=== PATIENT | male | born 1990 | race Two or more races ===

== ENCOUNTER 2023-08-18 12:00 | Emergency (ER) | payer SELFPAY ==
[~2023-08-18] VITALS: Ht 172.7 cm; Wt 70.5 kg
[2023-08-18 12:05] VITALS: TEMP 97.7
[2023-08-18] MEDS: PERTUSS(ACELL),DIPH,TET/PF 0.5 ML SYRINGE [ADULT] IM. ONE (12:38)
[2023-08-18 12:46] VITALS: BP 120/70; PULSE 80; RESP 16
[2023-08-18] MEDS ORDERED: SULF-261 PO (13:19)
[2023-08-18] MEDS ORDERED: CEPH-558 PO (13:19)
== END 2023-08-18 12:54 | disposition home or self-care (01) ==
LOC: EMS 12:00
DX: L03.115 Cellulitis of right lower limb (principal); K46.9 Unspecified abdominal hernia without obstruction or gangrene; Z90.49 Acquired absence of other specified parts of digestive tract
CPT/HCPCS: 29505; 90471; 90715; 99283

== ENCOUNTER 2024-02-28 11:43 | Emergency (ER) | payer OTHER ==
[~2024-02-28] VITALS: Ht 172.7 cm; Wt 65.0 kg
[~2024-02-28 11:43] MED LIST: CEPH-558 PO; SULF-261 PO
[2024-02-28 11:48] VITALS: TEMP 98.6
[2024-02-28 13:55] LABS: COVID AG,FIA SOURCE NASAL SWAB
[2024-02-28 14:07] LABS: ALCOHOL, URINE DRUG SCREEN NEGATIVE (NEGATIVE); AMPHET/METH SCREEN,URINE NEGATIVE (NEGATIVE); BARBITURATE SCREEN, URINE NEGATIVE (NEGATIVE); BENZODIAZEPINES SCREEN,URINE NEGATIVE (NEGATIVE); CANNABINOID SCREEN,URINE NEGATIVE (NEGATIVE); COCAINE SCREEN,URINE NEGATIVE (NEGATIVE); METHADONE SCREEN, URINE NEGATIVE (NEGATIVE); OPIATE SCREEN,URINE NEGATIVE (NEGATIVE); PHENCYCLIDINE SCREEN,URINE NEGATIVE (NEGATIVE)
[2024-02-28 14:34] LABS: SARS-COV2 (COVID) ANTIGEN,FIA Negative (Negative)
[2024-02-28] MEDS: LORazepam 1 MG TABLET PO ONE (14:37)
[2024-02-28] MEDS: DiphenhydrAMINE HCL 25 MG/10 ML SOLUTION UDCUP PO ONE (14:37)
[2024-02-28] MEDS: OLANZapine 5 MG TABLET PO ONE (14:37)
[2024-02-28] MEDS ORDERED: OLAN10TA74 PO (16:37)
[2024-02-28] MEDS ORDERED: BENZ-247 PO (16:37)
[2024-02-28 16:50] VITALS: BP 120/75; PULSE 62; RESP 18; O2SAT 97
== END 2024-02-28 16:51 | disposition home or self-care (01) ==
LOC: EMS 11:43
DX: F20.0 Paranoid schizophrenia (principal); Z90.49 Acquired absence of other specified parts of digestive tract; Z20.822 Contact with and (suspected) exposure to COVID-19
CPT/HCPCS: 80307; 99284